=== PATIENT | female | born 1975 | race Caucasian/White ===

== ENCOUNTER 2018-06-01 11:55 | Emergency (ER) | payer OTHER, SELFPAY ==
[2018-06-01] MEDS ORDERED: NA CHLORIDE 0.9% 1,000 ML ONE (12:45)
[2018-06-01 13:53] LABS: Protime INR 1.11
[2018-06-01 13:54] LABS: Absolute Lymphocytes (CBC) 1.8 K/uL (0.7-4.9); Absolute Monocytes 0.6 K/uL (0.1-1.3); Absolute Neutrophil 7.2 K/uL (1.8-8.0); Basophils % 0.4 % (0-1.3); Eosinophils % 0.3 % (0-4.4); Hematocrit 38.4 % (36.0-45.0); Lymphocytes % 19.1 % (15.3-44.8); MPV 8.9 fL (7.6-11.3); Monocytes % 5.8 % (3.3-12.3); RBC Red Blood Cell Count 4.96 M/uL (3.86-4.86)
[2018-06-01 14:10] LABS: ALT/SGPT 14 U/L (12-78); AST/SGOT 15 U/L (15-37); Albumin 3.9 g/dL (3.4-5.0); Alkaline Phosphatase 59 U/L (45-117); BUN Blood Urea Nitrogen 14 mg/dL (7-18); Bicarbonate 28 mmol/L (21-32); Bilirubin Direct 0.1 mg/dL (0-0.2); Bilirubin Total 0.6 mg/dL (0.2-1.0); Glucose Level 69 mg/dL (74-106); Potassium 3.1 mmol/L (3.5-5.1); Protein, Total 7.4 g/dL (6.4-8.2); Sodium Level 141 mmol/L (136-145)
--- NOTE | 2018-06-01 15:22 | RAD REPORT ---
EXAM DESCRIPTION: CT - Head Brain Wo Cont - 06/01/2018 3:14 pm CLINICAL HISTORY: CONFUSED Headache, drowsiness COMPARISON: No comparisons TECHNIQUE: All CT scans are performed using dose optimization technique as appropriate and may inclu de automated exposure control or mA/KV adjustment according to patient size. FINDINGS: No intracranial hemorrhage, hydrocephalus or extra-axial fluid collection.No areas of brai n edema or evidence of midline shift. The paranasal sinuses and mastoids are clear. The calvarium is intact. IMPRESSION: No acute intracranial abnormality.
[2018-06-01 15:40] LABS: Urine Blood 2+ (NEG); Urine Glucose NEGATIVE (NEG); Urine Protein NEGATIVE (NEG); Urine Specific Gravity 1.015 (1.005-1.030); Urine pH 6.5 (5.0-7.0)
[2018-06-01 15:45] LABS: Barbiturates NEGATIVE (NEGATIVE); Benzodiazepines NEGATIVE (NEGATIVE); Cocaine NEGATIVE (NEGATIVE); METHAMPHETAM POSITIVE (NEGATIVE); Methadone NEGATIVE (NEGATIVE); Opiates NEGATIVE (NEGATIVE); Phencyclidine NEGATIVE (NEGATIVE); THC Cannibis POSITIVE (NEGATIVE)
[2018-06-01] MEDS ORDERED: POTASSIUM 25 MEQ EFFERV TAB ONE (15:52)
[2018-06-01] MEDS ORDERED: D50W 25 GM/50 ML SYRINGE IV ONE (15:52)
--- NOTE | 2018-06-01 16:00 | ER ---
Nurse's Notes [facility] Name: Stefany Ko Age: 42 yrs Sex: Female : 1975 Arrival Date: 06/01/2018 Time: 12:03 Bed 16 Private MD: Diagnosis: Altered mental status, unspecified;Hypoglycemia, unspecified;Hypokalemia;Abuse of non-psychoactive substances;Adverse effect of amphetamines Presentation: 06/01 11:55 Presenting complaint: EMS states: Pt. is A \\T\\ O x 3, [facility] and had altered mental status, she had been walking all night from [place]. History of hypertension, gallbladder problems, and chronic back pain. No home medications and NKDA per pt. report. BP 168/115, P 104, 100% RA, T 97.8. BGL 149. Transition of care: patient was not received from another setting of care. Onset of symptoms is unknown. 11:55 Method Of Arrival: EMS: [facility] 11:55 Acuity: JING 3 rb1 11:55 Risk Assessment: Do you want to hurt yourself or someone else? Patient reports no rb1 desire to harm self or others. Initial Sepsis Screen: Does the patient meet any 2 criteria? No. Patient's initial sepsis screen is negative. Does the patient have a suspected source of infection? No. Patient's initial sepsis screen is negative. Care prior to arrival: None. Triage Assessment: 11:55 General: Appears uncomfortable, Behavior is calm, cooperative, Denies fever, feeling rb1 ill. Pain: Complains of pain in low back and left hip Pain currently is 8 out of 10 on a pain scale. Neuro: Level of Consciousness is awake, alert, obeys commands, Oriented to person, place, time, situation. Cardiovascular: Capillary refill < 3 seconds is brisk in bilateral fingers. Respiratory: Airway is patent Respiratory effort is even, unlabored, Respiratory pattern is regular, symmetrical. GI: Reports nausea. : No signs and/or symptoms were reported regarding the genitourinary system. Derm: Skin is pink, warm \\T\\ dry. Musculoskeletal: Range of motion: intact in all extremities. 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 - Social history:: Smoking status: Patient uses tobacco products, smokes one-half pack cigarettes per day, Marijuana. - Family history:: not pertinent. - Ebola Screening: : Patient negative for fever greater than or equal to 101.5 degrees Fahrenheit, and additional compatible Ebola Virus Disease symptoms. Screenin:55 Abuse screen: Denies threats or abuse. Nutritional screening: No deficits noted. rb1 Tuberculosis screening: No symptoms or risk factors identified. Fall Risk None identified. Assessment: 11:55 General: See triage assessment. rb1 12:55 Reassessment: Patient appears in no apparent distress at this time. No changes from rb1 previously documented assessment. 13:50 Reassessment: Patient appears in no apparent distress at this time. Patient and/or rb1 family updated on plan of care and expected duration. Pain level reassessed. Patient is alert, oriented x 3, equal unlabored respirations, skin warm/dry/pink. 14:44 Reassessment: Patient appears in no apparent distress at this time. Pt. resting with rb1 eyes closed, respiration even, unlabored. Call light within reach. 15:40 Reassessment: Patient appears in no apparent distress at this time. Patient and/or rb1 family updated on plan of care and expected duration. Pain level reassessed. Patient is alert, oriented x 3, equal unlabored respirations, skin warm/dry/pink. 16:05 Reassessment: Offered to call someone for the pt. for transportation home, but she rb1 refused. She did not want to call anyone locally for transportation. 16:15 Reassessment: Gave the pt. [facility] to call rb1 for assistance. Pt. stated, "I don't want to call anyone.". Vital Signs: 11:55 BP 146 / 96; Pulse 101; Resp 17; Temp 97.8(O); Pulse Ox 100% on R/A; Weight 77.11 kg rb1 (R); Height 5 ft. 8 in. (172.72 cm) (R); Pain 8/10; 12:55 BP 126 / 90; Pulse 75; Resp 17; Pulse Ox 99% on R/A; rb1 13:48 BP 144 / 99; Pulse 87; Resp 17; Pulse Ox 100% on R/A; rb1 14:48 BP 143 / 94; Pulse 72; Resp 16; Pulse Ox 99% ; Pain 6/10; rb1 15:24 BP 138 / 89; Pulse 79; Resp 17; Pulse Ox 100% on R/A; rb1 16:24 BP 133 / 92; Pulse 75; Resp 18; Pulse Ox 100% on R/A; rb1 11:55 Body Mass Index 25.85 (77.11 kg, 172.72 cm) rb1 ED Course: 11:55 Arm band placed on right wrist. rb1 11:55 Patient has correct armband on for positive identification. Bed in low position. Call rb1 light in reach. Side rails up X 1. Pulse ox on. NIBP on. Warm blanket given. 12:03 Patient arrived in ED. rb1 12:09 Triage completed. rb1 12:21 Lucho Naik MD is Attending Physician. terence 12:26 Margarita Correia, RAIN is Primary Nurse. rb1 12:30 Missed attempt(s): 22 gauge in right antecubital area. rb1 13:30 Initial lab(s) drawn, by me, sent to lab. Inserted saline lock: 20 gauge in right em antecubital area, using aseptic technique. Blood collected. 15:[address] mw3 15:13 CT Head Brain wo Cont In Process Unspecified. EDMS 15:14 CT completed. Patient tolerated procedure well. Patient moved back from CT. mw3 16:27 No provider procedures requiring assistance completed. IV discontinued, intact, rb1 bleeding controlled, No redness/swelling at site. Pressure dressing applied. Administered Medications: 13:40 Drug: NS 0.9% 1000 ml Route: IV; Rate: 1 bolus; Site: right antecubital; rb1 15:40 Drug: Potassium Effervescent Tablet 25 mEq Route: PO; hb 16:00 Follow up: Response: No adverse reaction rb1 15:40 Drug: D50W 25 ml Route: IVP; Site: right antecubital; hb 16:00 Follow up: Response: No adverse reaction rb1 Point of Care Testing: Blood Glucose: 16:25 Blood Glucose: 148 mg/dL; rb1 Ranges: Outcome: 15:58 Discharge ordered by . terence 16:27 Patient left the ED. rb1 16:27 Discharged to home ambulatory. rb1 16:27 Condition: stable 16:27 Discharge instructions given to patient, Instructed on discharge instructions, follow up and referral plans. Demonstrated understanding of instructions, follow-up care, Prescriptions given X none Signatures: Dispatcher [employer] Lucho Toney MD MD cha Munoz, Edgar, TIMING ADJUSTER TIMING ADJUSTER Margarita Shah RN RN rb1 Rocío Hamilton RN RN Vani Rivero 3
--- NOTE | 2018-06-01 16:00 | EDPHYS ---
Physician Documentation [facility] Name: Stefany Ko Age: 42 yrs Sex: Female : 1975 Arrival Date: 06/01/2018 Time: 12:03 Bed 16 Private MD: ED Physician Lucho Naik HPI: 06/01 13:38 This 42 yrs old Female presents to ER via EMS with complaints of Altered terence Mental Status. 13:38 The patient presents with confusion, trouble concentrating. Onset: The symptoms/episode terence began/occurred 1 day(s) ago. Possible causes: unknown. Associated signs and symptoms: The patient has no apparent associated signs or symptoms. Current symptoms: In the emergency department the patient's symptoms have improved. Patient's baseline: Neuro:. The patient has not experienced similar symptoms in the past. 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 - Social history:: Smoking status: Patient uses tobacco products, smokes one-half pack cigarettes per day, Marijuana. - Family history:: not pertinent. - Ebola Screening: : Patient negative for fever greater than or equal to 101.5 degrees Fahrenheit, and additional compatible Ebola Virus Disease symptoms. ROS: 13:38 Constitutional: Negative for fever, chills, and weight loss, Eyes: Negative for injury, terence pain, redness, and discharge, ENT: Negative for injury, pain, and discharge, Neck: Negative for injury, pain, and swelling, Cardiovascular: Negative for chest pain, palpitations, and edema, Respiratory: Negative for shortness of breath, cough, wheezing, and pleuritic chest pain, Abdomen/GI: Negative for abdominal pain, nausea, vomiting, diarrhea, and constipation, Back: Negative for injury and pain, : Negative for injury, bleeding, discharge, and swelling, MS/Extremity: Negative for injury and deformity, Skin: Negative for injury, rash, and discoloration, Psych: Negative for depression, anxiety, suicide ideation, homicidal ideation, and hallucinations, Allergy/Immunology: Negative for hives, rash, and allergies, Endocrine: Negative for neck swelling, polydipsia, polyuria, polyphagia, and marked weight changes, Hematologic/Lymphatic: Negative for swollen nodes, abnormal bleeding, and unusual bruising. 13:38 Neuro: Positive for altered mental status. Exam: 13:38 Constitutional: This is a well developed, well nourished patient who is awake, alert, terence and in no acute distress. Head/Face: Normocephalic, atraumatic. Eyes: Pupils equal round and reactive to light, extra-ocular motions intact. Lids and lashes normal. Conjunctiva and sclera are non-icteric and not injected. Cornea within normal limits. Periorbital areas with no swelling, redness, or edema. ENT: Nares patent. No nasal discharge, no septal abnormalities noted. Tympanic membranes are normal and external auditory canals are clear. Oropharynx with no redness, swelling, or masses, exudates, or evidence of obstruction, uvula midline. Mucous membranes moist. Neck: Trachea midline, no thyromegaly or masses palpated, and no cervical lymphadenopathy. Supple, full range of motion without nuchal rigidity, or vertebral point tenderness. No Meningismus. Chest/axilla: Normal chest wall appearance and motion. Nontender with no deformity. No lesions are appreciated. Cardiovascular: Regular rate and rhythm with a normal S1 and S2. No gallops, murmurs, or rubs. Normal PMI, no JVD. No pulse deficits. Respiratory: Lungs have equal breath sounds bilaterally, clear to auscultation and percussion. No rales, rhonchi or wheezes noted. No increased work of breathing, no retractions or nasal flaring. Abdomen/GI: Soft, non-tender, with normal bowel sounds. No distension or tympany. No guarding or rebound. No evidence of tenderness throughout. Back: No spinal tenderness. No costovertebral tenderness. Full range of motion. Skin: Warm, dry with normal turgor. Normal color with no rashes, no lesions, and no evidence of cellulitis. MS/ Extremity: Pulses equal, no cyanosis. Neurovascular intact. Full, normal range of motion. Neuro: Awake and alert, GCS 15, oriented to person, place, time, and situation. Cranial nerves II-XII grossly intact. Motor strength 5/5 in all extremities. Sensory grossly intact. Cerebellar exam normal. Normal gait. Psych: Awake, alert, with orientation to person, place and time. Behavior, mood, and affect are within normal limits. 13:38 Neck: ROM/movement: is normal, no acute changes, Meningeal signs: are not present, Kernig's sign is negative, Brudzinski's sign is negative. Vital Signs: 11:55 BP 146 / 96; Pulse 101; Resp 17; Temp 97.8(O); Pulse Ox 100% on R/A; Weight 77.11 kg rb1 (R); Height 5 ft. 8 in. (172.72 cm) (R); Pain 8/10; 12:55 BP 126 / 90; Pulse 75; Resp 17; Pulse Ox 99% on R/A; rb1 13:48 BP 144 / 99; Pulse 87; Resp 17; Pulse Ox 100% on R/A; rb1 14:48 BP 143 / 94; Pulse 72; Resp 16; Pulse Ox 99% ; Pain 6/10; rb1 15:24 BP 138 / 89; Pulse 79; Resp 17; Pulse Ox 100% on R/A; rb1 16:24 BP 133 / 92; Pulse 75; Resp 18; Pulse Ox 100% on R/A; rb1 11:55 Body Mass Index 25.85 (77.11 kg, 172.72 cm) [facility] MDM: 12:21 Patient medically screened. [facility] 13:40 Data reviewed: vital signs, nurses notes, lab test result(s), EKG, radiologic studies, terence CT scan. 15:08 Patient medically screened. [facility] 06/01 12:22 Order name: Acetaminophen [facility] 06/01 12:22 Order name: Basic Metabolic Panel [facility] 06/01 12:22 Order name: CBC with Diff; Complete Time: 14:33 [facility] 06/01 12:22 Order name: ETOH Level; Complete Time: 14:33 [facility] 06/01 12:22 Order name: Hepatic Function [facility] 06/01 12:22 Order name: PT-INR; Complete Time: 14:33 [facility] 06/01 12:22 Order name: Ptt, Activated; Complete Time: 14:33 [facility] 06/01 12:22 Order name: Salicylate; Complete Time: 14:33 [facility] 06/01 12:22 Order name: Urine Drug Screen [facility] 06/01 12:23 Order name: Acetaminophen Level; Complete Time: 14:33 EDMS 06/01 12:23 Order name: Basic Metabolic Panel; Complete Time: 14:33 EDKY 06/01 12:23 Order name: Liver (Hepatic) Function; Complete Time: 14:33 EDKY 06/01 14:34 Order name: AMMONIA [facility] 06/01 15:34 Order name: Urine Dipstick--Ancillary (enter results); Complete Time: 15:46 06/01 12:22 Order name: Urine Test (obtain specimen); Complete Time: 16:53 [facility] 06/01 12:22 Order name: EKG - Nurse/Tech [facility] 06/01 12:22 Order name: IV Saline Lock; Complete Time: 13:46 terence 06/01 12:22 Order name: Labs collected and sent; Complete Time: 13:46 [facility] 06/01 12:22 Order name: Urine Dipstick-Ancillary (obtain specimen); Complete Time: 15:33 [facility] 06/01 14:34 Order name: PO challenge: JUICE; Complete Time: 16:52 [facility] 06/01 14:34 Order name: CT Head Brain wo Cont; Complete Time: 15:23 [facility] 06/01 14:36 Order name: Diet Regular; Complete Time: 14:36 bd Administered Medications: 13:40 Drug: NS 0.9% 1000 ml Route: IV; Rate: 1 bolus; Site: right antecubital; rb1 15:40 Drug: Potassium Effervescent Tablet 25 mEq Route: PO; hb 16:00 Follow up: Response: No adverse reaction rb1 15:40 Drug: D50W 25 ml Route: IVP; Site: right antecubital; hb 16:00 Follow up: Response: No adverse reaction rb1 Point of Care Testing: Blood Glucose: 16:25 Blood Glucose: 148 mg/dL; rb1 Ranges: Critical Glucose Levels:Adult <50 mg/dl or >400 mg/dl <40 mg/dl or >180 mg/dl Disposition: 06/01/18 15:58 Discharged to Home. Impression: Altered mental status, unspecified, Hypoglycemia, unspecified, Hypokalemia, Abuse of non-psychoactive substances, Adverse effect of amphetamines. - Condition is Stable. - Discharge Instructions: Confusion, Potassium Content of Foods, Hypoglycemia, Substance Use Disorder, Stimulant Use Disorder-Methamphetamines, Blood Glucose Monitoring, Adult, Hypoglycemia, [id number], Hypokalemia. - Medication Reconciliation Form, Thank You Letter, Antibiotic Education, Prescription Opioid Use form. - Follow up: Private Physician; When: 2 - 3 days; Reason: Recheck today's complaints, Continuance of care, Re-evaluation by your physician. - Problem is new. - Symptoms have improved. Signatures: Dispatcher [employer] EDMS Lucho Naik MD MD cha Barber, Rebecca RN RN rb1 Rocío Hamilton RN RN Corrections: (The following items were deleted from the chart) 16:27 15:58 06/01/2018 15:58 Discharged to Home. Impression: Altered mental status, rb1 unspecified; Hypoglycemia, unspecified; Hypokalemia; Abuse of non-psychoactive substances; Adverse effect of amphetamines. Condition is Stable. Discharge Instructions: Confusion, Potassium Content of Foods, Hypoglycemia, Blood Glucose Monitoring, Adult, Hypoglycemia, [id number], Hypokalemia. Forms are Medication Reconciliation Form, Thank You Letter, Antibiotic Education, Prescription Opioid Use. Follow up: Private Physician; When: 2 - 3 days; Reason: Recheck today's complaints, Continuance of care, Re-evaluation by your physician. Problem is new. Symptoms have improved. terence
[2018-06-01 16:48] VITALS: TEMP 97.8
[2018-06-01 16:53] VITALS: O2SAT 100
[2018-06-01 16:54] VITALS: BP 133/92
== END 2018-06-01 16:27 | disposition home or self-care (01) ==
LOC: ER 11:55
DX: R41.82 Altered mental status, unspecified (principal); E16.2 Hypoglycemia, unspecified; E87.6 Hypokalemia; F55.8 Abuse of other non-psychoactive substances; T43.625A Adverse effect of amphetamines, initial encounter; I10 Essential (primary) hypertension; F17.210 Nicotine dependence, cigarettes, uncomplicated
CPT/HCPCS: 36415; 70450; 80048; 80076; 80307; 80320; 80329; 81003; 82140; 82962; 85025; 85610; 85730; 96374; 99285; J7030

== ENCOUNTER 2020-06-04 11:02 | Inpatient (IN) | payer SELFPAY ==
[2020-06-04 12:08] LABS: Absolute Lymphocytes (CBC) 1.7 K/uL (0.7-4.9); Basophils % 0.5 % (0-1.3); Hematocrit 33.7 % (36.0-45.0); Lymphocytes % 16.1 % (15.3-44.8); MPV 8.5 fL (7.6-11.3); RBC Red Blood Cell Count 4.55 M/uL (3.86-4.86)
[2020-06-04] MEDS ORDERED: LEVALBUTEROL 1.25 MG/3 ML NEB ONE (12:13)
[2020-06-04 12:25] LABS: Protime INR 1.68
[2020-06-04 12:30] LABS: ALT/SGPT 179 U/L (12-78); AST/SGOT 56 U/L (15-37); Albumin 2.6 g/dL (3.4-5.0); Alkaline Phosphatase 232 U/L (45-117); BUN Blood Urea Nitrogen 17 mg/dL (7-18); Bicarbonate 23 mmol/L (21-32); Bilirubin Direct 0.3 mg/dL (0-0.2); Bilirubin Total 0.7 mg/dL (0.2-1.0); Creatine Phosphokinase 79 U/L (26-192); Glucose Level 115 mg/dL (74-106); Magnesium 1.8 mg/dL (1.8-2.4); NT PRO-BNP 4979 pg/mL (<125); Potassium 4.4 mmol/L (3.5-5.1); Protein, Total 6.6 g/dL (6.4-8.2); Sodium Level 137 mmol/L (136-145); Troponin (Emerg Dept Use Only) 0.03 ng/mL (0.0-0.045)
[2020-06-04 13:13] LABS: SARS-COV-2 RT PCR NEGATIVE (NEGATIVE)
--- NOTE | 2020-06-04 14:06 | RAD REPORT ---
EXAM DESCRIPTION: RAD - Chest Single View - 06/04/2020 1:52 pm CLINICAL HISTORY: DYSPNEA COMPARISON: None TECHNIQUE: AP portable chest image was obtained 06/04/2020 1:52 pm . FINDINGS: Lung volumes are low. No peripheral mass or consolidation. Cardiac silhouette is enlarged from cardiomegaly or possibly pericardial effusion. No vascular engorgement. No measurable pleural ef fusion and no pneumothorax. No acute bony abnormality seen. No acute aortic findings suspected. IMPRESSION: No focal lung parenchymal process identified. Shallow inspiration body habitus and abbie ble technique accentuate lung base opacification. Enlarged cardiac silhouette from chamber enlargement or possibly pericardial effusion.
--- NOTE | 2020-06-04 14:15 | ER ---
Nurse's Notes [facility] Name: Stefany Ko Age: 44 yrs Sex: Female : 1975 Arrival Date: 06/04/2020 Time: 11:05 Bed 25 Private MD: Diagnosis: Dyspnea, unspecified;Pulmonary edema Presentation: 06/04 11:05 Chief complaint: EMS states: SOB x 1 month, bilateral lower leg and foot edema x 3 hb days. 20 L hand. Coronavirus screen: Client presents with at least one sign or symptom that may indicate coronavirus-19. Standard/surgical mask placed on the client. Provider contacted for isolation considerations. Ebola Screen: No symptoms or risks identified at this time. Initial Sepsis Screen: Does the patient meet any 2 criteria? HR > 90 bpm. No. Patient's initial sepsis screen is negative. Does the patient have a suspected source of infection? No. Patient's initial sepsis screen is negative. Risk Assessment: Do you want to hurt yourself or someone else? Patient reports no desire to harm self or others. Onset of symptoms was April 2020. 11:05 Method Of Arrival: EMS: [facility] 11:05 Acuity: JING 3 hb Historical: - Allergies: 11:08 No Known Allergies; hb - PMHx: 11:08 Hypertension; hb - PSHx: 11:08 None; hb - Immunization history:: Adult Immunizations up to date. - Social history:: Smoking status: Patient denies any tobacco usage or history of. - Family history:: not pertinent. - Hospitalizations: : No recent hospitalization is reported. Screenin:10 Abuse screen: Denies threats or abuse. Nutritional screening: No deficits noted. ll1 Tuberculosis screening: No symptoms or risk factors identified. Fall Risk IV access (20 points). Gait- Weak (10 pts.). Total Fuchs Fall Scale indicates Low Risk Score (25-44 pts). Fall prevention measures have been instituted. Side Rails Up X 2 Placed close to Nursing Station Frequent Obs/Assesments occuring As available Patient and Family Educated on Fall Prevention Program and strategies. Assessment: 11:25 General: Appears ill, Behavior is calm, cooperative, appropriate for age. Pain: Denies ll1 pain. Neuro: No deficits noted. Cardiovascular: Heart tones S1 S2 Capillary refill < 3 seconds Clubbing of nail beds is absent JVD is absent Patient's skin is warm and dry. Pulses are all present. Rhythm is sinus tachycardia. Respiratory: Airway is patent Trachea midline Respiratory effort is even, labored, Breath sounds with wheezes bilaterally. the patient has mild shortness of breath. GI: No deficits noted. 12:25 Reassessment: No changes from previously documented assessment. Patient and/or family ll1 updated on plan of care and expected duration. Pain level reassessed. 13:25 Reassessment: No changes from previously documented assessment. Patient and/or family ll1 updated on plan of care and expected duration. Pain level reassessed. 14:25 Reassessment: No changes from previously documented assessment. Patient and/or family ll1 updated on plan of care and expected duration. Pain level reassessed. 15:25 Reassessment: No changes from previously documented assessment. Patient and/or family ll1 updated on plan of care and expected duration. Pain level reassessed. Vital Signs: 11:05 BP 139 / 95; Pulse 110; Resp 18; Temp 97.4(O); Pulse Ox 100% on R/A; Pain 3/10; hb 12:09 BP 124 / 94; Pulse 105; Resp 20; Pulse Ox 100% on Nebulizer Mask; ll1 15:40 BP 125 / 86; Pulse 105; Resp 20; Pulse Ox 98% on R/A; ll1 ED Course: 11:05 Patient arrived in ED. hb 11:07 Triage completed. hb 11:08 Arm band placed on. hb 11:20 Travis Pierre, RN is Primary Nurse. ll1 11:20 Patient placed in an exam room, on a stretcher. ll1 11:23 Barrera Good MD is Attending Physician. rn 12:08 PT-INR Sent. ll1 12:08 Blood Culture Adult (2) Sent. ll1 12:08 BMP Sent. ll1 12:08 CBC with Diff Sent. ll1 12:08 CPK Sent. ll1 12:08 Hepatic Function Sent. ll1 12:09 Magnesium Sent. ll1 12:09 NT PRO-BNP Sent. ll1 12:09 Troponin (emerg Dept Use Only) Sent. ll1 12:09 Procalcitonin Sent. ll1 12:10 Patient has correct armband on for positive identification. Bed in low position. Call ll1 light in reach. Side rails up X 1. monitor and storage bin tender on. Pulse ox on. NIBP on. 13:52 XRAY CXR (1 view) In Process Unspecified. EDMS 14:14 Raul Meade is Hospitalizing Provider. rn 19:07 No provider procedures requiring assistance completed. Patient admitted, IV remains in hb place. Administered Medications: 11:58 Drug: Xopenex (3) 1.25 mg Route: Inhalation; ll1 12:41 Follow up: Response: No adverse reaction; RASS: Alert and Calm (0) ll1 Point of Care Testing: Guaiac: 14:04 Stool Guaiac: Negative; Stool Hemoccult Control: Pass; rn Outcome: 14:15 Decision to Hospitalize by Provider. rn 19:07 Admitted to Med/surg accompanied by nurse, via wheelchair, room 208. hb 19:07 Condition: stable 19:07 Instructed on the need for admit, Demonstrated understanding of instructions. 19:09 Patient left the ED. Signatures: Dispatcher [employer] EDTX Barrera Good MD MD rn Baxter, Heather, RN RN hb Lewis, Lynsay, RN RN ll1 Corrections: (The following items were deleted from the chart) 12:28 12:09 Influenza Screen (A \T\ B)+[id number].LAB.BRZ drawn and sent. 1 EDTX
--- NOTE | 2020-06-04 14:15 | EDPHYS ---
Physician Documentation [facility] Name: Stefany Ko Age: 44 yrs Sex: Female : 1975 Arrival Date: 06/04/2020 Time: 11:05 Bed 25 Private MD: ED Physician Barrera Good HPI: 06/04 11:52 This 44 yrs old Female presents to ER via EMS with complaints of Shortness Of rn Breath. 11:52 The patient has shortness of breath with light activity. Onset: The symptoms/episode rn began/occurred 1 month(s) ago. Duration: The symptoms are intermittent. The patient's shortness of breath is aggravated by exertion, supine position. Associated signs and symptoms: Pertinent positives: non-productive cough, Pertinent negatives: fever, hemoptysis. Severity of symptoms: At their worst the symptoms were moderate in the emergency department the symptoms have improved. The patient has not experienced similar symptoms in the past. The patient has not recently seen a physician. Reports atleast 1 month of sob, + white sputum, no fever, no hemoptysis, worse when laying flat and with exertion. Also reports lower ext swelling. + smoker. No hx of dvt/PE. . Historical: - Allergies: 11:08 No Known Allergies; hb - PMHx: 11:08 Hypertension; hb - PSHx: 11:08 None; hb - Immunization history:: Adult Immunizations up to date. - Social history:: Smoking status: Patient denies any tobacco usage or history of. - Family history:: not pertinent. - Hospitalizations: : No recent hospitalization is reported. ROS: 11:52 Constitutional: Negative for fever, chills, and weight loss, Eyes: Negative for injury, rn pain, redness, and discharge, Cardiovascular: Negative for chest pain, palpitations Respiratory: + sob and cough Abdomen/GI: Negative for abdominal pain, nausea, vomiting, diarrhea, and constipation, Back: Negative for injury and pain, : Negative for injury, bleeding, discharge, and swelling, MS/Extremity: + swelling of legs Skin: Negative for injury, rash, and discoloration, Neuro: Negative for headache, numbness, tingling, and seizure. 11:52 All other systems are negative. Exam: 11:52 Constitutional: This is a well developed, well nourished patient who is awake, alert, rn mild tachypnea Head/Face: Normocephalic, atraumatic. ENT: No stridor Cardiovascular: Tahcycardic, regular Respiratory: + mild tachypnea, faint wheezing, no retractions Abdomen/GI: soft, non-tender Skin: Warm, dry MS/ Extremity: Pulses equal, no cyanosis. Neurovascular intact. Full, normal range of motion. Equal circumference. Neuro: Awake and alert, GCS 15, oriented to person, place, time, and situation. Cranial nerves II-XII grossly intact. Motor strength 5/5 in all extremities. Sensory grossly intact. Cerebellar exam normal. Vital Signs: 11:05 BP 139 / 95; Pulse 110; Resp 18; Temp 97.4(O); Pulse Ox 100% on R/A; Pain 3/10; hb 12:09 BP 124 / 94; Pulse 105; Resp 20; Pulse Ox 100% on Nebulizer Mask; ll1 15:40 BP 125 / 86; Pulse 105; Resp 20; Pulse Ox 98% on R/A; ll1 MDM: 11:24 Patient medically screened. rn 14:11 Differential diagnosis: Anemia Chronic Obstructive Pulmonary Disease Myocardial rn Infarction pneumonia, Pneumothorax pulmonary edema. Data reviewed: vital signs, nurses notes, lab test result(s), radiologic studies, plain films, and as a result, I will admit patient. Counseling: I had a detailed discussion with the patient and/or guardian regarding: the historical points, exam findings, and any diagnostic results supporting the discharge/admit diagnosis, lab results, radiology results, the need for further work-up and treatment in the hospital. Admission orders: after a detailed discussion of the patient's condition and case, the admit orders are written by me. ED course: Pt with signs and symptoms of volume overload/pulmonary edema, elevated BNP, no known diagnosis of chf, possibly secondary to liver or ETOH. Admitted to Dr. Meade.. 06/04 11:33 Order name: PT-INR rn 06/04 11:33 Order name: Blood Culture Adult (2) rn 06/04 11:33 Order name: BMP rn 06/04 11:33 Order name: CBC with Diff rn 06/04 11:33 Order name: CPK rn 06/04 11:33 Order name: Hepatic Function; Complete Time: 12:54 rn 04/10 11:33 Order name: Magnesium; Complete Time: 12:54 rn 10 11:33 Order name: NT PRO-BNP; Complete Time: 12:54 rn 10 11:33 Order name: Troponin (emerg Dept Use Only); Complete Time: 12:54 rn 06/04 11:33 Order name: Procalcitonin; Complete Time: 13:43 rn 06/04 11:34 Order name: Protime (+INR); Complete Time: 12:54 EDMS 06/04 11:34 Order name: Blood Culture EDMS 06/04 11:33 Order name: XRAY CXR (1 view); Complete Time: 14:10 rn 06/04 11:33 Order name: EKG; Complete Time: 11:36 rn 06/04 11:33 Order name: Cardiac monitoring; Complete Time: 11:58 rn 06/04 11:33 Order name: EKG - Nurse/Tech; Complete Time: 11:58 rn 06/04 11:33 Order name: IV Saline Lock; Complete Time: 11:52 rn 06/04 11:33 Order name: Labs collected and sent; Complete Time: 11:52 rn 06/04 11:33 Order name: O2 Per Protocol; Complete Time: 11:58 rn 06/04 11:33 Order name: O2 Sat Monitoring; Complete Time: 11:59 rn 06/04 11:34 Order name: Basic Metabolic Panel; Complete Time: 12:54 EDMS 06/04 11:34 Order name: CBC with Automated Diff; Complete Time: 12:54 EDMS 06/04 11:34 Order name: Creatine Phosphokinase; Complete Time: 12:54 EDMS 06/04 13:14 Order name: COVID-19/FLU A+B; Complete Time: 13:43 EDMS 06/04 18:49 Order name: ABG Arterial Blood Gas EDMS Administered Medications: 11:58 Drug: Xopenex (3) 1.25 mg Route: Inhalation; ll1 12:41 Follow up: Response: No adverse reaction; RASS: Alert and Calm (0) ll1 Point of Care Testing: Guaiac: 14:04 Stool Guaiac: Negative; Stool Hemoccult Control: Pass; rn Disposition: 06/04/20 14:15 Hospitalization ordered by Raul Meade for Observation. Preliminary diagnosis are Dyspnea, unspecified, Pulmonary edema. - Bed requested for Telemetry/MedSurg (observation). - Status is Observation. hb - Condition is Stable. - Problem is an ongoing problem. - Symptoms are unchanged. Signatures: Dispatcher [employer] EDND Hannah Peterson RN RN dw Barrera Good MD MD rn Baxter, Heather, RN RN hb Lewis, Lynsay, RN RN ll1 Corrections: (The following items were deleted from the chart) 12:27 11:34 CORONAVIRUS+MR.LAB.BRZ ordered. EDND EDMS 12:28 11:34 Influenza Screen (A \T\ B)+BA.LAB.BRZ ordered. EDND EDMS 18:25 14:15 Hospitalization Ordered by Raul Meade for Observation. Preliminary diagnosis hb is Dyspnea, unspecified; Pulmonary edema. Bed requested for Telemetry/MedSurg (observation). Status is Observation. Condition is Stable. Problem is an ongoing problem. Symptoms are unchanged. rn 18:38 18:25 06/04/2020 14:15 Hospitalization Ordered by Raul Meade for Observation. dw Preliminary diagnosis is Dyspnea, unspecified; Pulmonary edema. Bed requested for [facility] ER HOLD. Status is Observation. Condition is Stable. Problem is an ongoing problem. Symptoms are unchanged. hb 19:09 18:38 06/04/2020 14:15 Hospitalization Ordered by Raul Meade for Observation. hb Preliminary diagnosis is Dyspnea, unspecified; Pulmonary edema. Bed requested for Telemetry/MedSurg (observation). Status is Observation. Condition is Stable. Problem is an ongoing problem. Symptoms are unchanged. dw
--- NOTE | 2020-06-04 15:47 | P.HP ---
Certification for Inpatient Patient admitted to: Observation With expected LOS: <2 Midnights Practitioner: I am a practitioner with admitting privileges, knowledge of patient current condition, hospital course, and medical plan of care. Services: Services provided to patient in accordance with Admission requirements found in Title 42 Section 412.3 of the Code of Federal Regulations Patient History Date of Service: 06/04/20 Reason for admission: Shortness of breath History of Present Illness: 44-year-old woman with no known past medical history presented emergency department with a complaint of shortness of breath of 1 month duration. She reports cough productive of clear sputum. She denied any chest pain, she endorsed palpitation. She denied any fever. The EKG done in the emergency department demonstrated sinus tachycardia. Chest x-ray shows no acute infiltrate but demonstrated enlarged cardiac silhouette. BNP is also markedly elevated. Patient's shortness of breath may be secondary to acute CHF or reactive airway disease. She is hospitalized for further management. Allergies No Known Allergies Allergy (Verified 04/22/16 10:11) Home Medications: Amoxicillin/Potassium Clav [Augmentin 875-125 Tablet] 1 each PO BID #20 tablet 04/23/16 Tramadol HCl [Ultram] 50 mg PO TID PRN #15 tablet 04/23/16 - Past Medical/Surgical History Diabetic: No -: Tobacco abuse Psychosocial/ Personal History: She has 4 children. - Family History Father -: Hypertension, Diabetes Mother -: Diabetes Brother -: Diabetes - Social History Smoking Status: Current every day smoker Alcohol use: No CD- Drugs: No Caffeine use: Yes Review of Systems Other: Except as documented, all other systems reviewed and negative. Physical Examination - Physical Exam General: Alert, In no apparent distress, Oriented x3 HEENT: Atraumatic, Normocephalic, PERRLA, Mucous membr. moist/pink, EOMI, Sclerae nonicteric Neck: Supple, JVD not distended, No Thyromegaly Respiratory: Clear to auscultation bilaterally, Normal air movement Cardiovascular: No edema, Normal S1 S2, Other (Tachycardia, regular rhythm.) Capillary refill: <2 Seconds Gastrointestinal: Normal bowel sounds, Soft and benign, Non-distended, No ascites, No tenderness Musculoskeletal: No swelling, No tenderness Integumentary: No rashes, No erythema Neurological: Normal speech, Normal strength at 5/5 x4 extr, Cranial nerves 3-12 intact - Studies Laboratory Data (last 24 hrs) 06/04/20 11:45: WBC 10.30, Hgb 10.7 L, Hct 33.7 L, Plt Count 418 H 06/04/20 11:45: Sodium 137, Potassium 4.4, BUN 17, Creatinine 0.70, Glucose 115 H, Magnesium 1.8, Total Bilirubin 0.7, AST 56 H, ALT 179 H, Alkaline Phosphatase 232 H 06/04/20 11:45: PT 19.4 H, INR 1.68 Assessment and Plan - Problems (Diagnosis) (1) Acute CHF Current Visit: Yes Status: Acute (2) Sinus tachycardia Current Visit: Yes Status: Acute (3) Shortness of breath Current Visit: Yes Status: Acute (4) Tobacco abuse Current Visit: No Status: Chronic (5) Elevated liver enzymes Onset Date: 04/20/16 Current Visit: No Status: Acute - Plan Differential diagnosis for patient's shortness of breath include acute CHF versus reactive airway disease/COPD/ Place patient under observation. Trend troponin Treat acute CHF with IV Lasix Obtain echo Start scheduled bronchodilators. IV steroid. Monitor intake and output. No indication for antibiotics at this time. COVID and flu screen are negative. Elevated liver enzymes is chronic and could be related to alcoholic liver disease given her prior history of alcohol abuse. Patient advised to quit smoking. - Advance Directives Does patient have a Living Will: No Does patient have a Durable POA for Healthcare: No
[2020-06-04] MEDS: FUROSEMIDE 40 MG/4 ML VIAL IV SCH (18:24)
[2020-06-04] MEDS: METHYLPREDNISOLONE 40 MG INJ IV SCH (18:24)
[2020-06-04] MEDS: IPRATROPIUM BROM 0.5MG/2.5ML NEB SCH ×2 (18:24→20:00)
[2020-06-04 18:48] LABS: Arterial Blood Carboxyhemoglob 1.8 % (0-1.5); Blood Gas Oxyhemoglobin 94.7 % (94-97); Blood O2 Saturation 97.1 % (92-98.5)
[2020-06-04] MEDS ORDERED: METHYLPREDNISOLONE 40 MG INJ ONE (19:01)
[2020-06-04] MEDS ORDERED: FUROSEMIDE 40 MG/4 ML VIAL ONE (19:01)
[2020-06-04] MEDS: ALBUTEROL 2.5 MG/3 ML NEB SOL NEB SCH (20:00)
[2020-06-04 20:23] VITALS: BMI 35.2
[2020-06-05] MEDS: METHYLPREDNISOLONE 40 MG INJ IV SCH ×4 (00:10→17:05)
[2020-06-05] MEDS: IPRATROPIUM BROM 0.5MG/2.5ML NEB SCH ×6 (02:50→21:00)
[2020-06-05] MEDS: ALBUTEROL 2.5 MG/3 ML NEB SOL NEB SCH ×4 (02:50→21:00)
[2020-06-05 03:23] LABS: Absolute Lymphocytes (CBC) 0.7 K/uL (0.7-4.9); Basophils % 0.2 % (0-1.3); Hematocrit 33.3 % (36.0-45.0); Lymphocytes % 7.5 % (15.3-44.8); MPV 8.4 fL (7.6-11.3); RBC Red Blood Cell Count 4.59 M/uL (3.86-4.86)
[2020-06-05 03:41] LABS: Magnesium 1.8 mg/dL (1.8-2.4); Phosphorus 3.5 mg/dL (2.5-4.9); Potassium 4.2 mmol/L (3.5-5.1)
[2020-06-05] MEDS ORDERED: MAGNESIUM SULFATE 1 gm IVPB 1 GM/100 ML BAG IV ONE (04:28)
[2020-06-05] MEDS: FUROSEMIDE 40 MG/4 ML VIAL IV SCH ×2 (08:45→17:05)
[2020-06-05] MEDS: ENOXAPARIN 40 MG/0.4 ML SQ SCH (08:45)
--- NOTE | 2020-06-05 12:35 | P.PN ---
Subjective Date of Service: 06/05/20 Chief Complaint: Shortness of breath Patient reports feeling much better today. Physical Examination - Vital Signs Temperature: 97.7 F Blood Pressure: 116/55 Pulse: 93 Respirations: 16 Pulse Ox (%): 96 - Physical Exam General: In no apparent distress, Obese HEENT: Mucous membr. moist/pink Neck: JVD not distended Respiratory: Clear to auscultation bilaterally, Diminished Cardiovascular: No edema, Regular rate/rhythm, Normal S1 S2 Gastrointestinal: Normal bowel sounds, Soft and benign, Non-distended, No tenderness Musculoskeletal: No swelling, No tenderness Integumentary: No rashes Neurological: Normal strength at 5/5 x4 extr - Studies Laboratory Data (last 24 hrs) 06/04/20 11:45: PT 19.4 H, INR 1.68 Assessment And Plan - Current Problems (Diagnosis) (1) Acute CHF Current Visit: Yes Status: Acute (2) Sinus tachycardia Current Visit: Yes Status: Acute (3) Shortness of breath Current Visit: Yes Status: Acute (4) Tobacco abuse Current Visit: No Status: Chronic (5) Elevated liver enzymes Onset Date: 04/20/16 Current Visit: No Status: Acute - Plan Troponin trended negative. Patient symptoms significantly improved. Need to assess her LV function and rule out pericardial effusion. Echocardiogram is pending. Continue bronchodilators. Continue IV steroid. Monitor intake and output.
[2020-06-05] MEDS: ACETAMINOPHEN 500 MG TAB PO PRN (17:05)
[2020-06-06] MEDS: METHYLPREDNISOLONE 40 MG INJ IV SCH ×2 (00:10→05:56)
[2020-06-06] MEDS: IPRATROPIUM BROM 0.5MG/2.5ML NEB SCH ×6 (01:40→20:25)
[2020-06-06] MEDS: ALBUTEROL 2.5 MG/3 ML NEB SOL NEB SCH ×4 (01:40→20:25)
[2020-06-06 05:24] LABS: BUN Blood Urea Nitrogen 14 mg/dL (7-18); Bicarbonate 32 mmol/L (21-32); Glucose Level 132 mg/dL (74-106); Potassium 3.5 mmol/L (3.5-5.1); Sodium Level 140 mmol/L (136-145)
--- NOTE | 2020-06-06 07:18 | EKG ---
Test Date: 2020-06-04 Test Time: 11:50:54 Information Broker: SUMAN MEASUREMENT RESULTS: Intervals: Rate: 104 VT: 154 QRSD: 88 QT: 364 QTc: 478 [place]: P: 46 VT: 154 QRS: 28 T: -19 INTERPRETIVE STATEMENTS: Sinus tachycardia T wave abnormality, consider lateral ischemia Abnormal ECG No previous ECG available for comparison Electronically Signed On 06-06-20 07:14:36 CDT by Sly Camejo
--- NOTE | 2020-06-06 08:31 | P.DS ---
Admission Date: 06/04/20 Discharge Date: 06/06/20 Disposition: ROUTINE DISCHARGE Discharge Condition: FAIR Reason for Admission: Shortness of breath - Problems (1) Acute CHF Current Visit: Yes Status: Acute (2) Sinus tachycardia Current Visit: Yes Status: Acute (3) Shortness of breath Current Visit: Yes Status: Acute (4) Tobacco abuse Current Visit: No Status: Chronic (5) Elevated liver enzymes Onset Date: 04/20/16 Current Visit: No Status: Acute Brief History of Present Illness: 44-year-old woman with no known past medical history presented emergency department with a complaint of shortness of breath of 1 month duration. She reports cough productive of clear sputum. She denied any chest pain, she endorsed palpitation. She denied any fever. The EKG done in the emergency department demonstrated sinus tachycardia. Chest x-ray showed no acute infiltrate but demonstrated enlarged cardiac silhouette. BNP is also markedly elevated. Patient's shortness of breath may be secondary to acute CHF or reactive airway disease. She was hospitalized for further management. Hospital Course: Patient admitted to the medical floor and treated for CHF exacerbation with IV lasix. Patient is a current smoker and COPD exacerbation also suspected. She was also treated with IV steroid and scheduled bronchodilators. Her symptoms improved with treatment. Echocardiogram was done given enlarged cardiac silhouette and it reported.. Patient has clinically improved. She is discharged with bronchodilators and a few days of oral steroid. Patient advised to find care physician to monitor and manage her COPD. Vital Signs/Physical Exam: Temp Pulse Resp BP Pulse Ox 97.4 F 104 H 16 113/73 97 06/06/20 04:00 06/06/20 04:00 06/06/20 04:00 06/06/20 04:00 06/06/20 04:00 General: Alert, In no apparent distress, Oriented x3 HEENT: Mucous membr. moist/pink Neck: JVD not distended Respiratory: Clear to auscultation bilaterally, Normal air movement Cardiovascular: No edema, Regular rate/rhythm, Normal S1 S2 Gastrointestinal: Soft and benign, Non-distended, No tenderness Musculoskeletal: No swelling Integumentary: No rashes Neurological: Normal strength at 5/5 x4 extr Laboratory Data at Discharge: WBC 9.50 K/uL (4.3-10.9) 06/05/20 03:02 Hgb 10.7 g/dL (12.0-15.0) L 06/05/20 03:02 Hct 33.3 % (36.0-45.0) L 06/05/20 03:02 Plt Count 381 K/uL (152-406) 06/05/20 03:02 PT 19.4 SECONDS (9.5-12.5) H 06/04/20 11:45 INR 1.68 06/04/20 11:45 Sodium 140 mmol/L (136-145) 06/06/20 04:53 Potassium 3.5 mmol/L (3.5-5.1) 06/06/20 04:53 BUN 14 mg/dL (7-18) 06/06/20 04:53 Creatinine 0.66 mg/dL (0.55-1.3) 06/06/20 04:53 Glucose 132 mg/dL (74-106) H 06/06/20 04:53 Phosphorus 3.5 mg/dL (2.5-4.9) 06/05/20 03:02 Magnesium 2.0 mg/dL (1.8-2.4) 06/06/20 04:53 Total Bilirubin 0.7 mg/dL (0.2-1.0) 06/04/20 11:45 AST 56 U/L (15-37) H 06/04/20 11:45 ALT 179 U/L (12-78) H 06/04/20 11:45 Alkaline Phosphatase 232 U/L (45-117) H 06/04/20 11:45 Troponin I 0.02 ng/mL (0.0-0.045) 06/05/20 03:02 Home Medications: Albuterol Inhaler [Ventolin Inhaler*] 2 puff IH Q6H PRN #1 hfa.aer.ad 06/05/20 Fluticasone Propion/Salmeterol [Fluticasone-Salmeterol 250-50] 1 each IH BID #30 blst.w.dev 06/05/20 predniSONE [Prednisone] 40 mg PO DAILY #3 tablet 06/05/20 New Medications: Fluticasone Propion/Salmeterol [Fluticasone-Salmeterol 250-50] 1 each IH BID #30 blst.w.dev predniSONE [Prednisone] 40 mg PO DAILY #3 tablet Albuterol Inhaler [Ventolin Inhaler*] 2 puff IH Q6H PRN #1 hfa.aer.ad PRN Reason: Shortness Of Breath Diet: AHA Followup: NONE,NONE [Primary Care Provider] - 1-2 Weeks Time spent managing pt's care (in minutes): 32
[2020-06-06] MEDS ORDERED: POTASSIUM CL SA 10 MEQ TAB PO ONE (09:00)
[2020-06-06] MEDS: ENOXAPARIN 40 MG/0.4 ML SQ SCH (09:22)
[2020-06-06] MEDS: FUROSEMIDE 40 MG/4 ML VIAL IV SCH (09:23)
[2020-06-06] MEDS: ACETAMINOPHEN 500 MG TAB PO PRN (09:24)
--- NOTE | 2020-06-06 12:00 | P.PN ---
Subjective Date of Service: 06/06/20 Chief Complaint: Shortness of breath Patient denies any complain today. Blood cultures growing non beta-hemolytic strep and coagulase-negative Staph. Physical Examination - Vital Signs Temperature: 97.9 F Blood Pressure: 108/62 Pulse: 107 Respirations: 19 Pulse Ox (%): 100 - Physical Exam General: Alert, In no apparent distress, Oriented x3 HEENT: Mucous membr. moist/pink Neck: Supple Respiratory: Clear to auscultation bilaterally, Normal air movement Cardiovascular: No edema, Regular rate/rhythm, Normal S1 S2 Gastrointestinal: Normal bowel sounds, Soft and benign, Non-distended, No tenderness Musculoskeletal: No swelling, No tenderness Integumentary: No rashes Neurological: Normal speech, Normal strength at 5/5 x4 extr Assessment And Plan - Current Problems (Diagnosis) (1) Acute CHF Current Visit: Yes Status: Acute (2) Sinus tachycardia Current Visit: Yes Status: Acute (3) Shortness of breath Current Visit: Yes Status: Acute (4) Tobacco abuse Current Visit: No Status: Chronic (5) Elevated liver enzymes Onset Date: 04/20/16 Current Visit: No Status: Acute - Plan Troponin trended negative. Patient symptoms significantly improved. Need to assess her LV function and rule out pericardial effusion. Echocardiogram is pending. Continue bronchodilators. Continue IV steroid. Monitor intake and output. Blood culture: Non beta-hemolytic strep and coagulase negative Staph. These are probably skin contaminants. Since all bottles are growing these organisms, Will start IV vancomycin and repeat blood culture to confirm skin contaminant acquisition.
[2020-06-06] MEDS: VANCOMYCIN 1.75 GM in NA CHLORIDE 0.9% 500 ML IVPB SCH (13:00)
[2020-06-07] MEDS: VANCOMYCIN 1.75 GM in NA CHLORIDE 0.9% 500 ML IVPB SCH ×2 (00:32→12:20)
[2020-06-07] MEDS: IPRATROPIUM BROM 0.5MG/2.5ML NEB SCH ×6 (01:50→19:25)
[2020-06-07] MEDS: ALBUTEROL 2.5 MG/3 ML NEB SOL NEB SCH ×4 (01:50→19:25)
[2020-06-07 05:39] LABS: Absolute Lymphocytes (CBC) 1.1 K/uL (0.7-4.9); Basophils % 0.1 % (0-1.3); Hematocrit 31.9 % (36.0-45.0); Lymphocytes % 6.4 % (15.3-44.8); MPV 8.2 fL (7.6-11.3); RBC Red Blood Cell Count 4.31 M/uL (3.86-4.86)
[2020-06-07 05:52] LABS: BUN Blood Urea Nitrogen 21 mg/dL (7-18); Bicarbonate 32 mmol/L (21-32); Glucose Level 111 mg/dL (74-106); Potassium 3.6 mmol/L (3.5-5.1); Sodium Level 142 mmol/L (136-145)
[2020-06-07 06:05] LABS: C-Reactive Protein < 2.90 mg/L (<3.00)
[2020-06-07 06:46] LABS: Blood Morphology Comment NOT SEEN (NOT SEEN); Platelet Estimate ADEQ
[2020-06-07] MEDS: ENOXAPARIN 40 MG/0.4 ML SQ SCH (08:50)
[2020-06-07] MEDS: ACETAMINOPHEN 500 MG TAB PO PRN ×2 (08:50→20:43)
--- NOTE | 2020-06-07 09:03 | P.PN ---
Subjective Date of Service: 06/07/20 Chief Complaint: Shortness of breath Subjective: No new changes (no acute events overnight. patient reports feeling well. no fever/chills. Patient reports feeling much better since she was admitted. Blood cultures on 06/04 grew bacteria and felt likely to be co ntaminant. Patient denies recent illness, denies IV drug use. repeat cultures pending) Review of Systems 10-point ROS is otherwise unremarkable Physical Examination - Vital Signs Temperature: 98.4 F Blood Pressure: 98/61 Pulse: 97 Respirations: 16 Pulse Ox (%): 98 Assessment & Plan Physician Review Additional Text: Physical Exam General: Alert, In no apparent distress, Oriented x3 HEENT: Mucous membr. moist/pink Respiratory: Clear to auscultation bilaterally, Normal air movement Cardiovascular: No edema, Regular rate/rhythm, Normal S1 S2, no murmur Gastrointestinal: soft, nontender, nondistended Ext: No swelling, No tenderness Integumentary: No rashes Neurological: Normal speech, Normal strength at 5/5 x4 extr Problem List Shortness of breath Acute COPD exacerbation, new onset Acute CHF exacerbation, new onset, unknown type Sinus tachycardia Tobacco abuse Elevated liver enzymes reported some chest pressure on admission, trop trended negative symptomatically improved with diuresis and steroids / bronchodilators treated for bot COPD and CHF exacerbation Echocardiogram has been completed, awaiting report Continue bronchodilators, steroids Monitor intake and output - pt appears more euvolemic Blood culture: Non beta-hemolytic strep and coagulase negative Staph. likely skin contaminants - pt without fever/leukocytosis, denies IV drug use. Low likelihood of true bacteremia / endocarditis. No exam findings of endocarditis. But could be cause of acute CHF check CRP and procalcitonin today started on IV Vanc on 06/06, repeat culture obtained. ID consulted Dispo: anticipate dc home in the next 24hrs, pending negative repeat culture and echocardiogram results Time Spent Managing Pts Care (In Minutes): 35
--- NOTE | 2020-06-07 09:53 | ECHO ---
HEIGHT: 5 ft 8 in WEIGHT: 216 lb 9.6 oz DATE OF STUDY: 06/06/[address]: svitlana fournier 2-DIMENSIONAL: YES M.MODE: YES DOPPLER: YES COLOR FLOW: YES TDS: PORTABLE: DEFINITY: BUBBLE STUDY: DIAGNOSIS: CONGESTIVE HEART FAILURE CARDIAC HISTORY: CATHERIZATION: NO SURGERY: NO PROSTHETIC VALVE: NO PACEMAKER: NO MEASUREMENTS (cm) DIASTOLIC (NORMALS) SYSTOLIC (NORMALS) IVSd 1.0 (0.6-1.2) LA Diam 4.1 (1.9-4.0) LVEF 35-40% LVIDd 6.1 (3.5-5.7) LVIDs 5.4 (2.0-3.5) %FS 11% LVPWd 1.1 (0.6-1.2) Ao Diam 2.6 (2.0-3.7) 2 DIMENSIONAL ASSESSMENT: RIGHT ATRIUM: NORMAL LEFT ATRIUM: NORMAL RIGHT VENTRICLE: NORMAL LEFT VENTRICLE: NORMAL TRICUSPID VALVE: MILD TRICUSPID REGURGITATION MITRAL VALVE: MILD MITRAL REGURGITATION PULMONIC VALVE: NORMAL AORTIC VALVE: NORMAL PERICARDIAL EFFUSION: NONE AORTIC ROOT: NORMAL LEFT VENTRICULAR WALL MOTION: MODERATELY DEPRESSED LEFT VENTRICULAR FUNCTION WITH MODERATE GLOBAL HYPOKINESIS. DOPPLER/COLOR FLOW: SEE BELOW COMMENTS: MODERATELY DEPRESSED LEFT VENTRICULAR EJECTION FRACTION 35-40%. MODERATE GLOBAL HYPOKINESIS. MILD TRICUSPID REGURGITATION. TECHNOLOGIST: RAIN CRUZ
[2020-06-07] MEDS ORDERED: POTASSIUM 25 MEQ EFFERV TAB PO ONE (10:00)
--- NOTE | 2020-06-07 10:55 | P.CNS ---
Date of Consult: 06/07/20 Chief Complaint: Shortness of breath History of Present Illness: Patient is a 41-year-old female with a past medical history of cholecystitis who presented to the emergency department on Saturday due to shortness of breath and difficulty breathing. Patient states that for the past month she has had orthopnea shortness of breath as well as bilateral lower extremity swelling and abdominal distention. She reports a productive cough of frothy white sputum. He had ED done and ED demonstrated sinus tachycardia. Chest x-ray shows no acute infiltration but does demonstrate enlarged cardiac silhouette, BNP elevated. Echocardiogram show signs of congestive heart failure with reduced ejection fraction of 35-40%. Blood cultures grew Staph cellulitis negatives in 1 bottle and next grew non beta hemolytic strep as well as Staph coagulase negative. Patient started on IV vancomycin. Will add IV Zosyn due to increase in WBC. Results of blood culture could be a possible contamination. Repeat blood culture ordered on 06/06. Patient denies nausea, vomiting, diarrhea, chest pain, palpitations. Patient states that her breathing and shortness of breath/dyspnea has improved. States she is still having a slight cough. Allergies No Known Allergies Allergy (Verified 04/22/16 10:11) Home Medications: Albuterol Inhaler [Ventolin Inhaler*] 2 puff IH Q6H PRN #1 hfa.aer.ad 06/05/20 Fluticasone Propion/Salmeterol [Fluticasone-Salmeterol 250-50] 1 each IH BID #30 blst.w.dev 06/05/20 predniSONE [Prednisone] 40 mg PO DAILY #3 tablet 06/05/20 - Past Medical/Surgical History Diabetic: No -: Tobacco abuse Psychosocial/ Personal History: She has 4 children. - Family History Father Medical History: Hypertension, Diabetes Mother Medical History: Diabetes Brother Medical History: Diabetes - Social History Smoking Status: Current some day smoker Alcohol use: No CD- Drugs: No Caffeine use: Yes Place of Residence: Home Review of Systems 10-point ROS is otherwise unremarkable Physical Examination Temp Pulse Resp BP Pulse Ox 98.4 F 97 H 16 98/61 98 06/07/20 09:08 06/07/20 09:08 06/07/20 09:08 06/07/20 09:08 06/07/20 09:08 General: Alert, In no apparent distress, Oriented x3 HEENT: Atraumatic, Normocephalic, PERRLA Neck: Supple, 2+ carotid pulse no bruit Respiratory: Clear to auscultation bilaterally, Normal air movement Cardiovascular: Regular rate/rhythm, Other (Muffled heart sounds), Edema, Systolic murmur Gastrointestinal: Normal bowel sounds, Soft and benign, Non-distended Musculoskeletal: No clubbing, No swelling, No contractures Integumentary: No rashes, No breakdown, No significant lesion Neurological: Normal gait, Normal speech Acetaminophen (Acetaminophen 500 Mg Tab) 500 mg PO Q6H PRN PRN Reason: Pain scale 2-4 (Mild) Last Admin: 06/07/20 08:50 Dose: 500 mg Documented by: Albuterol Sulfate (Albuterol 2.5 Mg/3 Ml Neb Pamela) 2.5 mg NEB [id number] PENDING SALE TO [facility] Last Admin: 06/07/20 07:57 Dose: 2.5 mg Documented by: Enoxaparin Sodium (Enoxaparin 40 Mg/0.4 Ml) 40 mg SQ DAILY [facility] TO [facility] Last Admin: 06/07/20 08:50 Dose: 40 mg Documented by: Vancomycin HCl 1.75 gm/ Sodium (Chloride) 500 mls @ 250 mls/hr IVPB Q12H PENDING SALE TO [facility]; Protocol Last Admin: 06/07/20 00:32 Dose: 500 mls Documented by: Ipratropium [place] (Ipratropium Brom 0.5mg/2.5ml) 0.5 mg NEB [id number] [facility]END[facility] S[facility] TO [facility] Last Admin: 06/07/20 07:57 Dose: 0.5 mg Documented by: Sodium Chloride (Flush Normal Saline 10 Ml) 10 ml IV BID [facility]END[facility] TO [facility] Last Admin: 06/07/20 08:50 Dose: 10 ml Documented by: Temp Pulse Resp BP Pulse Ox 98.4 F 97 H 16 98/61 98 06/07/20 09:08 06/07/20 09:08 06/07/20 09:08 06/07/20 09:08 06/07/20 09:08 Conclusions/Impression: Antibiotics: Vancomycin start: 06/06 stop: -- cefepime start: 06/07 stop: -- Assessment: -bacteremia -congestive heart failure with with reduced ejection fraction -anemia Plan: -continue current antibiotic treatment. Awaiting repeat blood cultures. Source of infection possible contamination. -medical management per primary team next in-continue monitor CBC and BMP -continue monitor for signs of infection Plan of care discussed with critical findings the consultation.
[2020-06-07] MEDS: CEFEPIME/SWI 1gm 10 ML IV SCH ×2 (12:20→20:37)
[2020-06-07] MEDS ORDERED: CEFEPIME 1 GM/VIAL IV SCH (21:00)
[2020-06-08] MEDS: IPRATROPIUM BROM 0.5MG/2.5ML NEB SCH ×6 (00:48→19:05)
[2020-06-08] MEDS: VANCOMYCIN 1.75 GM in NA CHLORIDE 0.9% 500 ML IVPB SCH (01:00)
[2020-06-08] MEDS ORDERED: NA CHLORIDE 0.9% 500 ML ONE (01:59)
[2020-06-08] MEDS: ALBUTEROL 2.5 MG/3 ML NEB SOL NEB SCH ×4 (04:15→19:05)
[2020-06-08 05:31] LABS: Absolute Lymphocytes (CBC) 3.7 K/uL (0.7-4.9); Basophils % 0.1 % (0-1.3); Hematocrit 33.3 % (36.0-45.0); Lymphocytes % 24.8 % (15.3-44.8); MPV 8.3 fL (7.6-11.3)
[2020-06-08] MEDS: ACETAMINOPHEN 500 MG TAB PO PRN (09:09)
[2020-06-08] MEDS: ENOXAPARIN 40 MG/0.4 ML SQ SCH (09:09)
[2020-06-08] MEDS: CEFEPIME/SWI 1gm 10 ML IV SCH (09:10)
[2020-06-08 11:04] LABS: Urine Appearance CLEAR (Clear); Urine Bilirubin NEGATIVE (Negataive); Urine Blood NEGATIVE (Negative); Urine Color YELLOW (Yellow); Urine Glucose NEGATIVE (Negative); Urine Protein NEGATIVE (Negative); Urine Specific Gravity 1.015 (1.005-1.030); Urine Urobilinogen 0.2 mg/dL (0.2-1.0)
[2020-06-08 11:09] LABS: Urine Microscopic Reflex NO UMIC
--- NOTE | 2020-06-08 11:23 | P.PN ---
Subjective Date of Service: 06/08/20 Chief Complaint: Shortness of breath Patient seen examined at bedside. Antibiotic stopped. Repeat blood cultures negative. Review of Systems 10-point ROS is otherwise unremarkable Physical Examination - Vital Signs Temperature: 97.0 F Blood Pressure: 115/78 Pulse: 96 Respirations: 17 Pulse Ox (%): 98 - Studies Active Medications Acetaminophen (Acetaminophen 500 Mg Tab) 500 mg PO Q6H PRN PRN Reason: Pain scale 2-4 (Mild) Last Admin: 06/08/20 09:09 Dose: 500 mg Documented by: Albuterol Sulfate (Albuterol 2.5 Mg/3 Ml Neb Pamela) 2.5 mg NEB [id number] [facility] Last Admin: 06/08/20 08:00 Dose: Not Given Documented by: Enoxaparin Sodium (Enoxaparin 40 Mg/0.4 Ml) 40 mg SQ DAILY [facility] Last Admin: 06/08/20 09:09 Dose: 40 mg Documented by: Ipratropium [place] (Ipratropium Brom 0.5mg/2.5ml) 0.5 mg NEB [id number] [facility] Last Admin: 06/08/20 08:00 Dose: Not Given Documented by: Sodium Chloride (Flush Normal Saline 10 Ml) 10 ml IV BID [facility] Last Admin: 06/07/20 20:37 Dose: 10 ml Documented by: Laboratory Last Values WBC 10.30 K/uL (4.3-10.9) 06/04/20 11:45 RBC 4.55 M/uL (3.86-4.86) 06/04/20 11:45 Hgb 10.7 g/dL (12.0-15.0) L 06/04/20 11:45 Hct 33.7 % (36.0-45.0) L 06/04/20 11:45 MCV 74.1 fL (80-100) L D 06/04/20 11:45 MCH 23.5 pg (27.0-35.0) L D 06/04/20 11:45 MCHC 31.7 g/dL (32.0-36.0) L 06/04/20 11:45 RDW 17.2 % (12.1-15.2) H 06/04/20 11:45 Plt Count 418 K/uL (152-406) H 06/04/20 11:45 MPV 8.5 fL (7.6-11.3) 06/04/20 11:45 Neutrophils % 74.1 % (41.7-73.7) H 06/04/20 11:45 Lymphocytes % 16.1 % (15.3-44.8) 06/04/20 11:45 Monocytes % 8.7 % (3.3-12.3) 06/04/20 11:45 Eosinophils % 0.6 % (0-4.4) 06/04/20 11:45 Basophils % 0.5 % (0-1.3) 06/04/20 11:45 Absolute Neutrophils 7.6 K/uL (1.8-8.0) 06/04/20 11:45 Absolute Lymphocytes 1.7 K/uL (0.7-4.9) 06/04/20 11:45 Absolute Monocytes 0.9 K/uL (0.1-1.3) 06/04/20 11:45 Absolute Eosinophils 0.1 K/uL (0-0.5) 06/04/20 11:45 Absolute Basophils 0.0 K/uL (0-0.5) 06/04/20 11:45 PT 19.4 SECONDS (9.5-12.5) H 06/04/20 11:45 INR 1.68 06/04/20 11:45 Sodium 137 mmol/L (136-145) 06/04/20 11:45 Potassium 4.4 mmol/L (3.5-5.1) 06/04/20 11:45 Chloride 108 mmol/L (98-107) H 06/04/20 11:45 Carbon Dioxide 23 mmol/L (21-32) 06/04/20 11:45 BUN 17 mg/dL (7-18) 06/04/20 11:45 Creatinine 0.70 mg/dL (0.55-1.3) 06/04/20 11:45 Estimated GFR > 90 mL/min (=/>90) 06/04/20 11:45 Glucose 115 mg/dL (74-106) H 06/04/20 11:45 Calcium 8.0 mg/dL (8.5-10.1) L 06/04/20 11:45 Magnesium 1.8 mg/dL (1.8-2.4) 06/04/20 11:45 Total Bilirubin 0.7 mg/dL (0.2-1.0) 06/04/20 11:45 Direct Bilirubin 0.3 mg/dL (0-0.2) H 06/04/20 11:45 AST 56 U/L (15-37) H 06/04/20 11:45 ALT 179 U/L (12-78) H 06/04/20 11:45 Alkaline Phosphatase 232 U/L (45-117) H 06/04/20 11:45 Creatine Kinase 79 U/L (26-192) 06/04/20 11:45 Rapid Troponin I 0.03 ng/mL (0.0-0.045) 06/04/20 11:45 NT-Pro-B Natriuret Pep 4979 pg/mL (<125) H 06/04/20 11:45 Serum Total Protein 6.6 g/dL (6.4-8.2) 06/04/20 11:45 Albumin 2.6 g/dL (3.4-5.0) L 06/04/20 11:45 Globulin 4.0 g/dL (2.3-3.5) H 06/04/20 11:45 Albumin/Globulin Ratio 0.7 (1.1-1.8) L 06/04/20 11:45 Procalcitonin 0.10 ng/mL (<0.050) H 06/04/20 11:45 Influenza Type A RNA Negative (NEGATIVE) 06/04/20 11:57 Influenza Type B RNA Negative (NEGATIVE) 06/04/20 11:57 SARS-CoV-2 RNA (RT-PCR) Negative (NEGATIVE) 06/04/20 11:57 Temp Pulse Resp BP Pulse Ox 97.0 F 96 H 17 115/78 98 06/08/20 08:00 06/08/20 08:00 06/08/20 08:00 06/08/20 08:00 06/08/20 08:00 Assessment And Plan - Plan General: Alert, In no apparent distress, Oriented x3 HEENT: Atraumatic, Normocephalic, PERRLA Neck: Supple, 2+ carotid pulse no bruit Respiratory: Clear to auscultation bilaterally, Normal air movement Cardiovascular: Regular rate/rhythm, Other (Muffled heart sounds), Edema, Systolic murmur Gastrointestinal: Normal bowel sounds, Soft and benign, Non-distended Musculoskeletal: No clubbing, No swelling, No contractures Integumentary: No rashes, No breakdown, No significant lesion Neurological: Normal gait, Normal speech Conclusions/Impression: Antibiotics: Vancomycin start: 06/06 stop: 06/08 cefepime start: 06/07 stop: 06/08 Assessment: -bacteremia-likely contamination -congestive heart failure with with reduced ejection fraction -anemia Plan: -review blood cultures negative. Positive blood cultures on admission likely due to contamination. UA has been ordered as patient states she is having some urinary tract symptoms. Antibiotics for this time, we will will reassess need f or antibiotics based off of UA results. -medical management per primary team -continue monitor CBC and BMP -continue monitor for signs of infection Plan of care discussed with Dr. Wilson Thank you for consultation
--- NOTE | 2020-06-08 13:10 | P.PN ---
Subjective Date of Service: 06/08/20 Chief Complaint: Shortness of breath Subjective: Other (a bit rough overnight, doing ok this morning, reports some congestion in chest and dyspnea on exertion) Review of Systems 10-point ROS is otherwise unremarkable Physical Examination - Vital Signs Temperature: 97.2 F Blood Pressure: 127/67 Pulse: 110 Respirations: 16 Pulse Ox (%): 99 Assessment & Plan Physician Review Additional Text: Physical Exam General: NAD Respiratory: mild b/l crackles at bases, nonlabored on RA Cardiovascular: No edema, Regular rate/rhythm, Normal S1 S2, no murmur Gastrointestinal: soft, nontender, nondistended Ext: No swelling, No tenderness Integumentary: No rashes Neurological: Normal speech, Normal strength at 5/5 x4 extr Problem List Shortness of breath Acute COPD exacerbation, new onset Acute CHF exacerbation, new onset, systolic CHF (HFrEF) Sinus tachycardia Tobacco abuse Elevated liver enzymes reported some chest pressure on admission, trop trended negative symptomatically improved with diuresis and steroids / bronchodilators treated for both COPD and CHF exacerbation Echocardiogram: systolic CHF, EF: ~35-40%, cardiology consulted Continue bronchodilators, steroids Monitor intake and output - pt appears more euvolemic Blood culture: Non beta-hemolytic strep and coagulase negative Staph. likely skin contaminants - pt without fever/leukocytosis, denies IV drug use. Low likelihood of true bacteremia / endocarditis. No exam findings of endocarditis. But could be cause of acute CHF. check CRP and procalcitonin today started on IV Vanc on 06/06, repeat culture obtained - no growth so far. ID consulted stop antibiotics, monitor over next 24hr, if afebrile, does well, anticipate ddc home tomorow Dispo: anticipate dc home in the next 24hrs Time Spent Managing Pts Care (In Minutes): 35
[2020-06-08 13:40] LABS: Ferritin 19.9 ng/mL (8-388)
[2020-06-08] MEDS ORDERED: VANCOMYCIN 1.5 GM in NA CHLORIDE 0.9% 500 ML IVPB SCH (18:00)
[2020-06-08] MEDS: METOPROLOL TAR 25 MG TAB PO SCH (18:21)
[2020-06-09] MEDS: IPRATROPIUM BROM 0.5MG/2.5ML NEB SCH ×6 (01:10→15:08)
[2020-06-09] MEDS: ALBUTEROL 2.5 MG/3 ML NEB SOL NEB SCH ×3 (01:10→13:33)
[2020-06-09 06:13] LABS: Absolute Lymphocytes (CBC) 2.7 K/uL (0.7-4.9); Basophils % 0.1 % (0-1.3); Hematocrit 34.6 % (36.0-45.0); Lymphocytes % 21.4 % (15.3-44.8); MPV 8.3 fL (7.6-11.3); RBC Red Blood Cell Count 4.73 M/uL (3.86-4.86)
[2020-06-09] MEDS: METOPROLOL TAR 25 MG TAB PO SCH ×2 (06:30→18:05)
[2020-06-09 06:34] LABS: Albumin 2.7 g/dL (3.4-5.0); Bilirubin Total 0.6 mg/dL (0.2-1.0); Magnesium 2.3 mg/dL (1.8-2.4); Potassium 4.8 mmol/L (3.5-5.1); Protein, Total 6.2 g/dL (6.4-8.2)
[2020-06-09] MEDS: ACETAMINOPHEN 500 MG TAB PO PRN (08:25)
[2020-06-09] MEDS: ENOXAPARIN 40 MG/0.4 ML SQ SCH (08:26)
[2020-06-09 08:33] VITALS: O2SAT 100
--- NOTE | 2020-06-09 08:51 | RAD REPORT ---
EXAM DESCRIPTION: RAD - Chest Single View - 06/09/2020 4:30 am CLINICAL HISTORY: congestion, dyspnea Chest pain. COMPARISON: Chest Single View dated 06/04/2020 FINDINGS: Portable technique limits examination quality. The lungs are grossly clear. The heart is mildly enlarged size. No displaced fractures.
[2020-06-09] MEDS ORDERED: FUROSEMIDE 20 MG TABLET PO SCH (09:00)
[2020-06-09] MEDS ORDERED: lisinopriL 5 MG TAB PO SCH (09:00)
[2020-06-09 17:52] VITALS: BP 121/85; TEMP 98.3
--- NOTE | 2020-06-09 19:29 | P.DS ---
Admission Date: 06/04/20 Discharge Date: 06/09/20 Disposition: ROUTINE DISCHARGE Discharge Condition: FAIR Reason for Admission: Shortness of breath Consultations: ID - Dr. Wilson Procedures: CXR (06/04): No focal lung parenchymal process identified. Shallow inspiration body habitus and portable technique accentuate lung base opacification. Enlarged cardiac silhouette from chamber enlargement or possibly pericardial effusion. CXR (06/09): The lungs are grossly clear. The heart is mildly enlarged size. No displaced fractures. TTE (06/06): moderately depressed LV EF (35-40%), moderate global hypokinesis. m ild TR Problem List Acute CHF exacerbation, new onset, systolic CHF (HFrEF) Acute COPD exacerbation, new onset Sinus tachycardia Tobacco abuse Elevated liver enzymes Brief History of Present Illness: 44-year-old woman with no known past medical history presented emergency department with a complaint of shortness of breath of 1 month duration. She reports cough productive of clear sputum. She denied any chest pain, she endorsed palpitation. She denied any fever. The EKG done in the emergency department demonstrated sinus tachycardia. Chest x-ray shows no acute infiltrate but demonstrated enlarged cardiac silhouette. BNP is also markedly elevated. Patient's shortness of breath may be secondary to acute CHF or reactive airway disease. She is hospitalized for further management. Hospital Course: Workup revealed a depressed EF of 35-40% on echocardiogram. Patient was started on metoprolol, lisinopril, and diuresed well with lasix. She was also initially treated for COPD exacerbation. Initial blood cultures grew GPC and non-beta hemolytic strep, however patient did not have a leukocytosis, fever, or elevated procalcitonin. This was felt to be due to contamination and empiric antibiotics were discontinued after discussion with Infectious Disease. Final cultures were enterococcus faecalis and staph hominis. ID recommended 7 day course of augmentin on discharge. Patient remained afebrile and feeling well. She was also found to have iron deficiency anemia and advised to start PO iron. She was advised to follow up with: PCP within 3-5 days Cardiology in the next ~2 weeks Patient stated she was moving out of town in ~2 days to live with her parents. Vital Signs/Physical Exam: Physical Exam General: NAD Respiratory: clear to auscultation bilaterally, nonlabored on RA Cardiovascular: No edema, Regular rate/rhythm, Normal S1 S2, no murmur Gastrointestinal: soft, nontender, nondistended Ext: No swelling, No tenderness Integumentary: No rashes Neurological: Normal speech, Normal strength at 5/5 x4 extr Temp Pulse Resp BP Pulse Ox 98.3 F 101 H 16 121/85 99 06/09/20 16:00 06/09/20 18:05 06/09/20 16:00 06/09/20 18:05 06/09/20 16:00 Laboratory Data at Discharge: WBC 12.40 K/uL (4.3-10.9) H D 06/09/20 05:45 Hgb 10.9 g/dL (12.0-15.0) L 06/09/20 05:45 Hct 34.6 % (36.0-45.0) L 06/09/20 05:45 Plt Count 439 K/uL (152-406) H 06/09/20 05:45 PT 19.4 SECONDS (9.5-12.5) H 06/04/20 11:45 INR 1.68 06/04/20 11:45 Sodium 139 mmol/L (136-145) 06/09/20 05:45 Potassium 4.8 mmol/L (3.5-5.1) 06/09/20 05:45 BUN 19 mg/dL (7-18) H 06/09/20 05:45 Creatinine 0.82 mg/dL (0.55-1.3) 06/09/20 05:45 Glucose 96 mg/dL (74-106) 06/09/20 05:45 Phosphorus 3.5 mg/dL (2.5-4.9) 06/05/20 03:02 Magnesium 2.3 mg/dL (1.8-2.4) 06/09/20 05:45 Total Bilirubin 0.6 mg/dL (0.2-1.0) 06/09/20 05:45 AST 26 U/L (15-37) 06/09/20 05:45 ALT 77 U/L (12-78) D 06/09/20 05:45 Alkaline Phosphatase 121 U/L (45-117) H 06/09/20 05:45 Troponin I 0.02 ng/mL (0.0-0.045) 06/05/20 03:02 Home Medications: Albuterol Inhaler [Ventolin Inhaler*] 2 puff IH Q6H PRN #1 hfa.aer.ad 06/05/20 Fluticasone Propion/Salmeterol [Fluticasone-Salmeterol 250-50] 1 each IH BID #30 blst.w.dev 06/05/20 Amox/Clavulanate [Augmentin 875-125 Tab] 875 mg PO BID 7 Days #14 tab 06/09/20 Aspirin [Aspirin EC 81 MG] 81 mg PO DAILY 30 Days #30 tablet. 06/09/20 Ferrous Sulfate [Iron] 325 mg PO DAILY 60 Days #60 tablet 06/09/20 Furosemide [Lasix*] 20 mg PO DAILY 30 Days #30 tab 06/09/20 Metoprolol Tartrate [Lopressor*] 12.5 mg PO BID 30 Days #30 tab 06/09/20 lisinopriL [Prinivil*] 2.5 mg PO DAILY 30 Days #30 tab 06/09/20 New Medications: Aspirin [Aspirin EC 81 MG] 81 mg PO DAILY 30 Days #30 tablet. Amox/Clavulanate [Augmentin 875-125 Tab] 875 mg PO BID 7 Days #14 tab Fluticasone Propion/Salmeterol [Fluticasone-Salmeterol 250-50] 1 each IH BID #30 blst.w.dev Ferrous Sulfate [Iron] 325 mg PO DAILY 60 Days #60 tablet Furosemide [Lasix*] 20 mg PO DAILY 30 Days #30 tab Metoprolol Tartrate [Lopressor*] 12.5 mg PO BID 30 Days #30 tab lisinopriL [Prinivil*] 2.5 mg PO DAILY 30 Days #30 tab Albuterol Inhaler [Ventolin Inhaler*] 2 puff IH Q6H PRN #1 hfa.aer.ad PRN Reason: Shortness Of Breath Physician Discharge Instructions: PROBLEM: Acute CHF GOAL: Clear understanding of disease process INSTRUCTIONS: Diet: heart healthy Activity: As tolerated If you have any questions regarding your stay call [phone] If your symptoms worsen call 911 or go to the ED. You were found to have new onset acute congestive heart failure. Your breathing improved with treatment - lasix, to help remove the fluid. You are prescribed medication for your heart and to help keep the fluid off. Blood culture (tests) were done which grew a bacteria, however, you did not have any other signs/symptoms of infection. Infectious disease doctor was consulted and recommended 7 days of antibiotics. You were also found to have iron deficiency anemia. Recommend taking a daily Iron pill (over the counter). Follow up further with your PCP. Follow up with PCP in 3-5 days Follow up with Cardiology in 1-2 weeks. Diet: AHA Activity: Ad radha Followup: Sly Camejo MD [ACTIVE - CAN ADMIT] - NONE,NONE [Primary Care Provider] - 1-2 Weeks Time spent managing pt's care (in minutes): 35
--- NOTE | 2020-06-11 12:25 | CON ---
Date of Consultation: 06/08/2020 Reason For Consultation: New-onset congestive heart failure. History Of Present Illness: Ms. Ko was admitted to Dr. Meade. She came in with shortness of breath. Echocardiogram showed an ejection fraction of 37%. Her only past history is hypertension wh ich has improved on Lasix, inhalers, metoprolol, lisinopril, which is great therapy for her. Ms. Kelvin rutledge I believe was ready to go home. Allergies: NONE. Review of Systems: Negative. Social History: Negative. Family History: Noncontributory. Medications: At home include inhalers. Physical Examination: Vital Signs: Stable, afebrile, sinus rhythm. Chest: Clear. Cardiac: Exam revealed a regular rhythm and rate with S3 gallops. No murmurs or rubs. Abdomen: Benign. Extremities: Cellulitis. Diagnostic Data: Revealed cardiomegaly on chest x-ray. Ejection fraction of 37% by echo. Impression And Plan: 1.Acute systolic congestive heart failure. 2.Chronic obstructive pulmonary disease. 3.Hypertension. 4.Staph cellulitis. I think Ms. Ko needs to be on aspirin, metoprolol, lisinopril, Lasix inhalers. I think she jaylen uld have an outpatient stress test in the near future. She needs to have salt restriction, fluid res triction. She can go home whenever it is okay with Dr. Meade. I would be happy to see her in the o ffice soon, but I understand Ms. Ko is moving and hopefully she will get her records with her w herever she goes. STEFANIA/ABRIL Voice ID: [id number] Report ID: [id number]
== END 2020-06-09 18:35 | disposition home or self-care (01) | DRG 190 ==
LOC: ER 11:02 → ERHOLD 16:55 → 2ND 19:14
PROVIDERS: ADMIT Internal Medicine; ATTEND Hospitalist
DX: J44.1 Chronic obstructive pulmonary disease with (acute) exacerbation (principal); I50.23 Acute on chronic systolic (congestive) heart failure; L03.90 Cellulitis, unspecified; I11.0 Hypertensive heart disease with heart failure; D50.9 Iron deficiency anemia, unspecified; F17.200 Nicotine dependence, unspecified, uncomplicated; E66.9 Obesity, unspecified; B95.2 Enterococcus as the cause of diseases classified elsewhere; B95.7 Other staphylococcus as the cause of diseases classified elsewhere; R00.0 Tachycardia, unspecified; R94.5 Abnormal results of liver function studies; Z68.33 Body mass index [BMI] 33.0-33.9, adult; Z88.5 Allergy status to narcotic agent; Z88.1 Allergy status to other antibiotic agents; Z79.82 Long term (current) use of aspirin; Z79.52 Long term (current) use of systemic steroids; Z79.899 Other long term (current) drug therapy; Z20.822 Contact with and (suspected) exposure to COVID-19
CPT/HCPCS: 0240U; 36415; 71045; 80048; 80053; 80076; 80202; 81003; 82550; 82728; 82805; 83540; 83735; 83880; 84100; 84145; 84466; 84484; 84703; 85025; 85610; 86140; 87040; 87077; 87186; 87205; 93005; 93306; 94760; 99285; J0692; J1650; J1940; J2920; J3370; J3475; J7040